=== PATIENT | female | born 2000 | race African-American/Black ===

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

== ENCOUNTER 2021-08-14 19:49 | Emergency (ER) | payer BC, SELFPAY ==
[2021-08-14 19:56] VITALS: BP 125/80; PULSE 113; RESP 18; TEMP 37.6; O2SAT 100
--- NOTE | 2021-08-14 19:59 | ED.ABDPAIN ---
HPI - Abdominal Pain General Chief Complaint: Abdominal Pain Stated Complaint: abd pain Time Seen by Provider: 08/14/21 19:59 Source: patient Mode of arrival: ambulatory Limitations: no limitations History of Present Illness HPI narrative: 21-year-old female with no significant medical history presents with complaint of left lower quadrant for 2 to 3 days. States that pain has been constant, nothing makes pain better or worse. No worsening of pain but became concerned due to consistency of pain. She reports nausea but no vomiting. She denies constipation, diarrhea, urinary symptoms. Last menstrual period was July 22. She is eating and drinking normally. Took Tylenol yesterday to treat pain. She does not appear in any distress and is laughing during conversation. All systems reviewed and negative except as noted above. Related Data Home Medications Medication Instructions Recorded Confirmed No Home Medications 03/18/20 03/29/20 Allergies Allergy/AdvReac Type Severity Reaction Status Date / Time No Known Allergies Allergy Mild Verified 08/14/21 19:50 Review of Systems Review of Systems: CONSTITUTIONAL: Denies fever, chills, or sweats. EYES: Denies visual changes, redness, or discharge. ENT: Denies rhinorrhea, congestion, sore throat, or otalgia. CARDIOVASCULAR: Denies chest pain, palpitations, or edema. RESPIRATORY: Denies cough or dyspnea. GASTROINTESTINAL: Reports abdominal pain, nausea. Denies vomiting, or diarrhea. GENITOURINARY: Denies dysuria or hematuria. SKIN: Denies rash or itching. MUSCULOSKELETAL: Denies back pain, joint pain, or myalgia. NEUROLOGIC: Denies headache, numbness, or weakness. PSYCHIATRIC: Denies anxiety or depression. All other systems reviewed are negative, except as documented in HPI. [facility] Past Medical History Medical History No pertinent past medical history Surgical History Surgical History No pertinent past surgical history Family History Family History Mother No pertinent family history Social History Social History Smoking status: Never smoker Alcohol intake: never Substance use: never Gender identity (if verbalized by the patient): Female Comments At time of signature, agree with nursing past medical, surgical, social and family history. There is no relevant family history pertinent to the presenting complaint. Exam Narrative: GENERAL: This is a well-nourished, well-developed patient, in no apparent distress. HEAD: normocephalic, atraumatic. EYES: PERRL. Sclera clear/white. Vision is grossly intact. EARS: External ears normal NOSE: External nose normal NECK: Neck supple, non-tender without lymphadenopathy, masses or thyromegaly. CARDIOVASCULAR: Regular rate and rhythm without murmurs, gallops, or rubs. RESPIRATORY: Clear to auscultation. Breath sounds equal bilaterally. No wheezes, rales, or rhonchi. GASTROINTESTINAL: Abdomen soft, nondistended. Bowel sounds are active. Patient to left upper quadrant, left lower quadrant and suprapubic region. SKIN: warm, Dry, intact with no suspicious lesions or rash, good texture and turgor. NEURO: awake, alert, and oriented to person, place and time. There were no obvious focal neurologic abnormalities. EXTREMITIES: Normal range of motion extremities. Course Course Level of Care: Express Care Visit Vital Signs Vital signs: Vital Signs Temperature 37.6 C 08/14/21 19:56 Pulse Rate 113 H 08/14/21 19:56 Respiratory Rate 18 08/14/21 19:56 Blood Pressure 125/80 08/14/21 19:56 Pulse Oximetry 100 08/14/21 19:56 Temperature 37.6 C 08/14/21 19:56 Pulse Rate 113 H 08/14/21 19:56 Respiratory Rate 18 08/14/21 19:56 Blood Pressure 125/80
== END 2021-08-14 20:19 | disposition short-term general hospital (02) ==
PROVIDERS: Emergency Provider Nurse Practitioner Family
DX: R10.32 Left lower quadrant pain (principal)
CPT/HCPCS: 81003; 81025; 99212; G0463

== ENCOUNTER 2021-08-14 20:36 | Emergency (ER) | payer BC, SELFPAY ==
--- NOTE | ~2021-08-14 | US_ITS ---
. EXAMINATION: US OB <=14 wk fetus w TV DATE: 08/14/2021 22:53 INDICATION: Left lower quadrant abdominal pain. . TECHNIQUE: Real-time transabdominal and transvaginal pelvic ultrasound was performed. COMPARISON: None. FINDINGS: TRANSABDOMINAL ULTRASOUND: The uterus measures 8.2 x 5.4 x 4.3 cm. TRANSVAGINAL ULTRASOUND: There is no visible intrauterine gestational sac. The endometrial complex me asures 10 mm in thickness. The right ovary measures 2.0 x 1.2 x 1.7 cm. The left ovary measures 2.1 x 2.1 x 2.0 cm. There is physiologic free fluid in the pelvis. IMPRESSION: 1. No visible intrauterine gestational sac, which may be normal in early . Ectopic pregnanc y and spontaneous are not excluded. Serial beta-hCGs are recommended. Reviewed, dictated and finalized at location A. IMPRESSION: 1. No visible intrauterine gestational sac, which may be normal in early pregn piyush. Ectopic and spontaneous are not excluded. Serial beta- hCGs are recommended.
[2021-08-14 21:02] VITALS: BP 135/106; PULSE 104; RESP 16; TEMP 36.9; O2SAT 100
[2021-08-14 21:22] LABS: Basophils Percent Auto 0.3 % (0.2-1.2); Eosinophils Percent Auto 0.4 % (0-4.4); Hematocrit 39.2 % (37.0-47.0); Hemoglobin 11.8 g/dL (12.0-15.0); Immature Granulocyte Absolute 0.03 K/mm3 (0.00-0.031); Immature Granulocyte Percent A 0.3 % (0-0.5); Lymphocytes Absolute Auto 1.77 K/mm3 (0.9-3.2); Lymphocytes Percent Auto 16.4 % (18.3-44.2); Mean Corpuscular HGB Conc 30.1 g/dl (32-36); Mean Corpuscular Hemoglobin 24.7 pg (26-34); Mean Corpuscular Volume 82.2 fl (80-100); Mean Platelet Volume 9.5 fl (7.4-10.4); Monocytes Absolute Auto 0.5 K/mm3 (0.1-0.6); Monocytes Percent Auto 4.6 % (2.6-8.5); Neutrophils Absolute Auto 8.5 K/mm3 (1.3-6.7); Platelet Count Result 382 k/mm3 (150-375); Red Blood Count 4.77 M/mm3 (4.2-5.4); Red Cell Distribution Width 14.9 % (11.5-14.5); White Blood Count 10.8 K/mm3 (4.5-10.0)
[2021-08-14 21:32] LABS: Alanine Aminotransferase 11 U/L (4-35); Albumin Level 4.3 g/dL (3.5-5.1); Alkaline Phosphatase 84 U/L (38-126); Anion Gap 7 mmol/L (8-16); Aspartate Amino Transferase 21 U/L (14-36); Bilirubin,Total 0.2 mg/dL (0.2-1.3); Blood Urea Nitrogen 11 mg/dL (7-17); Calcium 9.1 mg/dL (8.4-10.2); Carbon Dioxide 25 mmol/L (22-30); Chloride 105 mmol/L (98-107); Estimated CRCL calculation 99 ml/min; Estimated Glomerular Filt Rate > 60; Glucose 101 mg/dL (65-110); Lipase 107 U/L (23-300); Potassium 3.8 mmol/L (3.4-5.0); Sodium 137 mmol/L (137-145)
--- NOTE | 2021-08-14 21:40 | ED.ABDPAIN ---
HPI - Abdominal Pain General Chief Complaint: Abdominal Pain Stated Complaint: abdominal pain Time Seen by Provider: 08/14/21 21:16 Source: patient Mode of arrival: ambulatory Limitations: no limitations History of Present Illness HPI narrative: Patient is a 21-year-old previously healthy female who presents the ED with report of left upper quadrant abdominal pain. Patient reports having pain for the past 3 days. She describes the pain as an aching. She has taken Tylenol for this at home yesterday without much relief. She did not try anything for the pain today. She also reports having mild nausea. She denies any other symptoms, including fever, chills, vomiting, chest pain, shortness of breath, pain with inspiration, urinary symptoms, constipation, diarrhea. Related Data Home Medications Medication Instructions Recorded Confirmed No Home Medications 03/18/20 08/14/21 Allergies Allergy/AdvReac Type Severity Reaction Status Date / Time No Known Allergies Allergy Mild Verified 08/14/21 19:50 Review of Systems Review of Systems: CONSTITUTIONAL: Denies fever, chills, or sweats. CARDIOVASCULAR: Denies chest pain. RESPIRATORY: Denies dyspnea. GASTROINTESTINAL: Reports nausea, LUQ abdominal pain. Denies constipation, vomiting, or diarrhea. GENITOURINARY: Denies dysuria or hematuria. SKIN: Denies rash or itching. MUSCULOSKELETAL: Denies back pain. NEUROLOGIC: Denies headache, numbness, or weakness. All systems reviewed & are unremarkable except as noted in HPI and below PMFSH Past Medical History Medical History No pertinent past medical history Surgical History Surgical History No pertinent past surgical history Family History Family History Mother No pertinent family history Social History Social History Smoking status: Never smoker Alcohol intake: never Substance use: never Gender identity (if verbalized by the patient): Female Exam Narrative: GENERAL: Well appearing, well-nourished, non-toxic, in no acute distress. HEAD: Normocephalic, atraumatic. NECK: Supple. No adenopathy, no masses. RESPIRATORY: Airway patent, respirations nonlabored. Clear to auscultation bilaterally, no rales, rhonchi, wheezing. CARDIOVASCULAR: Regular rate and rhythm without murmurs, rubs, or gallops. Peripheral pulses 2+ and equal bilaterally. ABDOMINAL: Soft, minimal tenderness to LUQ/LLQ, nondistended, no hepatosplenomegaly. Normoactive BS. MUSCULOSKELETAL: Moves all extremities. Strength/ROM intact without gross deformities or TTP. No edema. No calf tenderness. SKIN: Warm, dry, normal color. No rashes. NEURO: A&O X3. Speech clear. Cranial nerves II-XII grossly intact. Steady gait. No ataxic movements. PSYCHIATRIC: Somewhat flat affect. Appropriate mood. Normal interaction. Course Vital Signs Vital signs: Vital Signs Temperature 98.5 F 08/14/21 21:02 Pulse Rate 104 H 08/14/21 21:02 Respiratory Rate 16 08/14/21 21:02 Blood Pressure 135/106 H 08/14/21 21:02 Pulse Oximetry 100 08/14/21 21:02 Temperature 98.5 F 08/14/21 21:02 Pulse Rate 80 08/14/21 22:57 Respiratory Rate 16 08/14/21 22:57 Blood Pressure 121/96 H 08/14/21 22:57 Pulse Oximetry 100 08/14/21 22:57 MDM - Abdominal Pain MDM Narrative Medical decision making narrative: Patient presented to ED with 3-day history of left upper quadrant abdominal pain. She does have minimal left upper and lower quadrant abdominal pain on exam today. Patient's bedside urine test was positive. Patient has never been before. Quantitative beta hCG ordered and showing 14. Patient's last menstrual cycle was July 22 through July 26 and she reports it was normal. She was last sexually active on Thursday.
[2021-08-14 21:41] VITALS: BP 142/83; PULSE 84; RESP 18
[2021-08-14 21:53] LABS: Appearance Urine Clear (Clear); Bilirubin Urine Negative (Negative); Blood Urine Negative (Negative); Color Urine Yellow (Yellow); Glucose Urine UA Negative (Negative); Ketones Urine Trace mg/dL (Negative); Leukocyte Esterase Ur 1+ LEU/UL (Negative); Nitrate Urine Negative (Negative); Protein Urine Trace mg/dL (Negative); Specific Grav Ur >= 1.030 (1.001-1.035)
[2021-08-14 22:01] LABS: Add Urine Microscopic? YES; Mucus Urine Moderate /lpf; Squamous Epithelial Cell Urine Many /hpf (Few); WBC Urine 31-50 /hpf
[2021-08-14 22:20] LABS: Beta HCG Quantitative 14.01 mIU/ML
[2021-08-14 22:57] VITALS: BP 121/96; PULSE 80; RESP 16; O2SAT 100
[2021-08-14] MEDS: NITROFURANTOIN MONOHYD MACROCR 100 MG CAP PO (23:32)
== END 2021-08-14 23:37 | disposition home or self-care (01) ==
PROVIDERS: Family Medicine; Physician Assistant; Emergency Provider Emergency Medicine
DX: R82.71 Bacteriuria (principal); O23.41 Unspecified infection of urinary tract in pregnancy, first trimester; Z3A.00 Weeks of gestation of pregnancy not specified
CPT/HCPCS: 36415; 76801; 76817; 80053; 81001; 81025; 83690; 84702; 85025; 87086; 99284; A9270

== ENCOUNTER 2021-10-31 19:54 | Emergency (ER) | payer BC, MEDICAID, SELFPAY ==
--- NOTE | 2021-10-31 20:03 | ED.SKABFB ---
HPI - Skin/Abscess/Foreign Bdy General Chief complaint: Skin/Abscess/Foreign Body Stated complaint: Insect Bites Time Seen by Provider: 10/31/21 20:03 Source: patient Mode of arrival: ambulatory Limitations: no limitations History of Present Illness HPI narrative: 21 yo F presents with c/o itching to neck, face, arms and legs. Reports symptoms for 2 to 3 days. States that she is getting bit by ants at work and was told to come here for documentation. She has not used any OTC meds to treat symptoms. She states one other coworker also has bites and that is her sister. Her and sister do not live today. All systems reviewed and negative except as noted above. Related Data Home Medications Medication Instructions Recorded Confirmed norgestimate 0.25 mg-ethinyl 1 tablet PO DAILY 10/31/21 10/31/21 estradiol 35 mcg tablet (Estarylla) Allergies Allergy/AdvReac Type Severity Reaction Status Date / Time No Known Allergies Allergy Mild Verified 10/31/21 19:57 Review of Systems Review of Systems: CONSTITUTIONAL: Denies fever, chills, or sweats. EYES: Denies visual changes, redness, or discharge. ENT: Denies rhinorrhea, congestion, sore throat, or otalgia. CARDIOVASCULAR: Denies chest pain, palpitations, or edema. RESPIRATORY: Denies cough or dyspnea. GASTROINTESTINAL: Denies abdominal pain, nausea, vomiting, or diarrhea. GENITOURINARY: Denies dysuria or hematuria. SKIN: Denies rash. Reports itchy ant bites to face, neck, arms and legs. MUSCULOSKELETAL: Denies back pain, joint pain, or myalgia. NEUROLOGIC: Denies headache, numbness, or weakness. PSYCHIATRIC: Denies anxiety or depression. All other systems reviewed are negative, except as documented in HPI. COUNTS INCLUDE 234 BEDS AT THE [facility] Past Medical History Medical History No pertinent past medical history Surgical History Surgical History No pertinent past surgical history Family History Family History Mother No pertinent family history Social History Social History Smoking status: Never smoker Alcohol intake: never Substance use: never Gender identity (if verbalized by the patient): Female Comments At time of signature, agree with nursing past medical, surgical, social and family history. There is no relevant family history pertinent to the presenting complaint. Exam Narrative: GENERAL: This is a well-nourished, well-developed patient, in no apparent distress. HEAD: normocephalic, atraumatic. EYES: PERRL. Sclera clear/white. Vision is grossly intact. EARS: External ears normal NOSE: External nose normal NECK: Neck supple, non-tender without lymphadenopathy, masses or thyromegaly. CARDIOVASCULAR: Regular rate and rhythm without murmurs, gallops, or rubs. RESPIRATORY: Clear to auscultation. Breath sounds equal bilaterally. No wheezes, rales, or rhonchi. SKIN: warm, Dry, intact with no rash, good texture and turgor. Two small erythematous papules to L side of neck. No swelling, drainage. Skin otherwise normal. NEURO: awake, alert, and oriented to person, place and time. There were no obvious focal neurologic abnormalities. EXTREMITIES: No joint tenderness, effusion, or edema noted. Course Course Level of Care: Express Care Visit Vital Signs Vital signs: Vital Signs Temperature 36.8 C 10/31/21 20:06 Pulse Rate 104 H 10/31/21 20:06 Respiratory Rate 18 10/31/21 20:06 Blood Pressure 145/89 H 10/31/21 20:06 Pulse Oximetry 100 10/31/21 20:06 Oxygen Delivery Room Air 10/31/21 20:06 Temperature 36.8 C 10/31/21 20:06 Pulse Rate 104 H 10/31/21 20:06 Respiratory Rate 18 10/31/21 20:06 Blood Pressure 145/89 H 10/31/21 20:06 Pulse Oximetry 100 10/31/21 20:06 Oxygen Delivery Room Air 10/31/21 20:06 reviewed
[2021-10-31 20:06] VITALS: BP 145/89; PULSE 104; RESP 18; TEMP 36.8; O2SAT 100
== END 2021-10-31 20:09 | disposition home or self-care (01) ==
PROVIDERS: Emergency Provider Nurse Practitioner Family
DX: S10.96XA Insect bite of unspecified part of neck, initial encounter (principal); W57.XXXA Bitten or stung by nonvenomous insect and other nonvenomous arthropods, initial encounter
CPT/HCPCS: 99213; G0463

== ENCOUNTER 2021-11-22 12:43 | Emergency (ER) | payer BC, MEDICAID, SELFPAY ==
[2021-11-22 12:52] VITALS: BP 109/67; PULSE 72; RESP 20; TEMP 37.3; O2SAT 100
--- NOTE | 2021-11-22 13:29 | ED.ABDPAIN ---
HPI - Abdominal Pain General Chief Complaint: Abdominal Pain Stated Complaint: abd pain Time Seen by Provider: 11/22/21 13:29 History of Present Illness HPI narrative: Hieu Ospina is a 21 yo female who states that she developed abdominal pain on the left side 3 days ago after eating something bad . Denies any nausea vomiting or diarrhea over the last 3 days she was off for the first to those days but was to be at work today; she left work because she said her stomach was hurting and her boss told her she had to come to [facility] and get a note stating that she was seen here. She denies any tenderness on exam she denies any fever she denies any type of urinary symptoms Related Data Home Medications Medication Instructions Recorded Confirmed norgestimate 0.25 mg-ethinyl 1 tablet PO DAILY 10/31/21 11/22/21 estradiol 35 mcg tablet (Estarylla) Allergies Allergy/AdvReac Type Severity Reaction Status Date / Time No Known Allergies Allergy Mild Verified 11/22/21 12:57 Review of Systems Review of Systems: CONSTITUTIONAL: Denies fever, chills, sweats. EYES: Denies visual changes, redness, discharge. ENT: Denies rhinorrhea, congestion, sore throat, otalgia. CARDIOVASCULAR: Denies chest pain, palpitations, edema. RESPIRATORY: Denies dyspnea, wheezing, cough GASTROINTESTINAL: Denies abdominal pain, nausea, vomiting, diarrhea. GENITOURINARY: Denies dysuria, hematuria, abnormal discharge SKIN: Denies rash or itching. NEUROLOGIC: Denies numbness, or focal weakness. PSYCHIATRIC: Denies anxiety or depression. Had left-sided abdominal pain for 3 days after eating which she stated 'was something bad', with no correlating symptoms PMFSH Past Medical History Medical History No pertinent past medical history Surgical History Surgical History No pertinent past surgical history Family History Family History Mother No pertinent family history Social History Social History Smoking status: Never smoker Alcohol intake: never Substance use: never Gender identity (if verbalized by the patient): Female Comments At time of signature, I agree with nursing past medical, surgical, social and family history. There is no relevant family history pertinent to the presenting complaint. Exam Narrative: GENERAL: This is a well-nourished, well-developed patient, in no obvious distress. HEAD: normocephalic, atraumatic. EYES: . Sclera clear/white. Vision is grossly intact. EARS: External ears normal, . Hearing grossly intact. NOSE: External nose normal without nasal discharge, nares without redness, no rhinorrhea. THROAT: Mucous membranes moist, NECK: Neck supple, non-tender CARDIOVASCULAR: Regular rate and rhythm without murmurs, gallops, or rubs. RESPIRATORY: Clear to auscultation. Breath sounds equal bilaterally. No wheezes, rales, or rhonchi. GASTROINTESTINAL: Abdomen soft, non-tender, bowel sounds normal with no abdominal tenderness in any quadrant although states she has problems with her left upper quadrant SKIN: warm, intact with no suspicious lesions or rash, good texture and turgor. NEURO: awake, alert, and oriented to person, place and time. There were no obvious focal neurologic abnormalities. Steady gait EXTREMITIES: Normal range of motion. BACK: Nontender without deformity Course Course Emergency Course: Patient here for left upper abdominal pain for the 3 days it has not been worsening no nausea vomiting or diarrhea test is negative, urine test is 3+ leukocytes but patient denies any kind of symptoms and so treatment is deferred Discussed with patient if increased pain, fever, nausea vomiting diarrhea should go to the ER or follow-up with primary care physician Level of Care: Expres
== END 2021-11-22 13:54 | disposition home or self-care (01) ==
PROVIDERS: Emergency Provider Nurse Practitioner; PCP Family Medicine
DX: R10.12 Left upper quadrant pain (principal)
CPT/HCPCS: 81003; 81025; 99212; G0463

== ENCOUNTER 2022-03-22 09:59 | Emergency (ER) | payer BC, SELFPAY ==
--- NOTE | ~2022-03-22 | XR_ITS ---
XR chest 1V portable DATE: 03/22/2022 11:02 INDICATION: Cough for 2 weeks. Flulike symptoms. TECHNIQUE: Portable upright AP chest on 03/22/2022 at 1100 hours COMPARISON: 07/27/2018 2 view chest FINDINGS: Normal heart size. No hilar or mediastinal enlargement. No pulmonary infiltrate or consolid ation, pleural effusion or pulmonary vascular congestion or pneumothorax. Mild thoracic moderate dextroscoliosis. IMPRESSION: No active cardiac pulmonary disease Reviewed, dictated and finalized at location A.
[2022-03-22 10:12] VITALS: BP 122/73; PULSE 110; RESP 18; TEMP 36.3; O2SAT 98
--- NOTE | 2022-03-22 10:14 | ED.URI ---
HPI - URI/Sore Throat General Chief Complaint: Upper Respiratory Infection <RICARDO Gandhi Last Filed: 03/22/22 14:11> Stated Complaint: FEVER,BODY ACHES <RICARDO Gandhi Last Filed: 03/22/22 14:11> Time Seen by Provider: 03/22/22 10:12 <RICARDO Gandhi Last Filed: 03/22/22 14:11> Source: patient <RICARDO Gandhi Last Filed: 03/22/22 14:11> Mode of arrival: ambulatory <RICARDO Gandhi Last Filed: 03/22/22 14:11> Limitations: no limitations <RICARDO Gandhi Last Filed: 03/22/22 14:11> History of Present Illness HPI Narrative: Patient is a 21 y/o female who presents to the ED with c/o upper respiratory symptoms. Patient reports having a persistent dry cough for the last two weeks. Over the last 4 days, she has also had subjective fevers, chills, body aches, congestion, rhinorrhea, sore throat, nausea. Denies vomiting, abdominal pain, CP, SOB. Patient here with young son who has had similar symptoms. Patient is vaccinated for COVID. She has not received her flu shot this year. <RICARDO Gandhi Last Filed: 03/22/22 14:11> Related Data Home Medications: Home Medications Medication Instructions Recorded Confirmed norgestimate 0.25 mg-ethinyl 1 tablet PO DAILY 10/31/21 11/22/21 estradiol 35 mcg tablet (Estarylla) <RICARDO Gandhi Last Filed: 03/22/22 14:11> Allergies/Adverse Reactions: Allergies Allergy/AdvReac Type Severity Reaction Status Date / Time No Known Allergies Allergy Mild Verified 03/22/22 10:15 <RICARDO Gandhi Last Filed: 03/22/22 14:11> Review of Systems Review of Systems: CONSTITUTIONAL: Reports subjective fevers. ENT: Reports rhinorrhea, congestion, sore throat. CARDIOVASCULAR: Denies chest pain. RESPIRATORY: Reports cough. Denies dyspnea. GASTROINTESTINAL: Reports nausea. Denies abdominal pain, vomiting. MUSCULOSKELETAL: Reports diffuse myalgias. <Elaine Moss PA-C - Last Filed: 03/22/22 14:11> All systems reviewed & are unremarkable except as noted in HPI and below <Elaine Moss PA-C - Last Filed: 03/22/22 14:11> PMFSH Past Medical History Medical History: Medical History No pertinent past medical history <Elaine Moss PA-C - Last Filed: 03/22/22 14:11> Surgical History Surgical History: Surgical History No pertinent past surgical history <Elaine Moss PA-C - Last Filed: 03/22/22 14:11> Family History Family History: Family History Mother No pertinent family history <Elaine Moss PA-C - Last Filed: 03/22/22 14:11> Social History Social History: Social History Smoking status: Never smoker Alcohol intake: never Substance use: never Gender identity (if verbalized by the patient): Female <Elaine Moss PA-C - Last Filed: 03/22/22 14:11> Exam Narrative: GENERAL: Well appearing, well-nourished, non-toxic, in no acute distress. HEAD: Normocephalic, atraumatic. EYES: PERRL/EOMI, conjunctivae clear bilaterally. NOSE: Normal, no drainage. THROAT: Pharynx clear, minimal posterior pharynx erythema, no tonsillar hypertrophy or exudate. Uvula midline. MMs moist. NECK: Supple. No adenopathy, no masses. RESPIRATORY: Airway patent, respirations nonlabored. Clear to auscultation bilaterally, no rales, rhonchi, wheezing. CARDIOVASCULAR: Regular rate and rhythm without murmurs, rubs, or gallops. Radial pulses 2+ and equal bilaterally. ABDOMINAL: Soft, nontender, nondistended, no hepatosplenomegaly. Normoactive BS. MUSCULOSKELETAL: Moves all extremities. Strength/ROM intact without gross deformities. SKIN: Warm, dry, nor
[2022-03-22] MEDS: SODIUM CHLORIDE 0.9% IV 1,000 ML 999 ML IV CONT (10:34)
[2022-03-22 11:08] LABS: Influenza A QL RT-PCR Positive (Negative); Influenza B QL RT-PCR Negative (Negative); SARS-CoV-2 RNA PCR Negative
== END 2022-03-22 12:32 | disposition home or self-care (01) ==
PROVIDERS: Physician Assistant; Emergency Provider Emergency Medicine; PCP Family Medicine
DX: J10.1 Influenza due to other identified influenza virus with other respiratory manifestations (principal); Z20.822 Contact with and (suspected) exposure to COVID-19
CPT/HCPCS: 71045; 87636; 96361; 96374; 99284; J0131; J7030

== ENCOUNTER 2022-05-03 18:50 | Emergency (ER) | payer BC, MEDICAID, SELFPAY ==
[2022-05-03 19:06] VITALS: BP 104/57; PULSE 86; RESP 16; TEMP 36.7; O2SAT 100
[2022-05-03 19:30] LABS: Add Urine Microscopic? YES; Appearance Urine Slightly Cloudy (Clear); Basophils Percent Auto 0.2 % (0.2-1.2); Bilirubin Urine Negative (Negative); Blood Urine Negative (Negative); Color Urine Light Yellow (Yellow); Eosinophils Absolute Auto 0.2 K/mm3 (0-0.3); Eosinophils Percent Auto 2.1 % (0-4.4); Glucose Urine UA Negative (Negative); Hematocrit 37.7 % (37.0-47.0); Hemoglobin 11.6 g/dL (12.0-15.0); Immature Granulocyte Absolute 0.01 K/mm3 (0.00-0.031); Immature Granulocyte Percent A 0.1 % (0-0.5); Ketones Urine Trace mg/dL (Negative); Leukocyte Esterase Ur 2+ LEU/UL (Negative); Lymphocytes Absolute Auto 4.02 K/mm3 (0.9-3.2); Lymphocytes Percent Auto 48.5 % (18.3-44.2); Mean Corpuscular HGB Conc 30.8 g/dl (32-36); Mean Corpuscular Hemoglobin 24.8 pg (26-34); Mean Corpuscular Volume 80.7 fl (80-100); Mean Platelet Volume 9.2 fl (7.4-10.4); Monocytes Absolute Auto 0.7 K/mm3 (0.1-0.6); Monocytes Percent Auto 8.7 % (2.6-8.5); Neutrophils Absolute Auto 3.4 K/mm3 (1.3-6.7); Neutrophils Percent Auto 40.4 % (45.5-73.1); Nitrate Urine Negative (Negative); Platelet Count Result 292 k/mm3 (150-375); Protein Urine Trace mg/dL (Negative); Red Blood Count 4.67 M/mm3 (4.2-5.4); Red Cell Distribution Width 15.9 % (11.5-14.5); White Blood Count 8.3 K/mm3 (4.5-10.0)
[2022-05-03 19:39] LABS: Alanine Aminotransferase 19 U/L (6-35); Albumin Level 4.2 g/dL (3.5-5.1); Alkaline Phosphatase 56 U/L (38-126); Anion Gap 4 mmol/L (8-16); Aspartate Amino Transferase 25 U/L (14-36); Bilirubin,Total 0.3 mg/dL (0.2-1.3); Blood Urea Nitrogen 8 mg/dL (7-17); Calcium 8.9 mg/dL (8.4-10.2); Carbon Dioxide 27 mmol/L (22-30); Chloride 102 mmol/L (98-107); Estimated CRCL calculation 99 ml/min; Estimated Glomerular Filt Rate > 60; Glucose 83 mg/dL (65-110); Lipase 138 U/L (23-300); Potassium 3.7 mmol/L (3.4-5.0); Sodium 133 mmol/L (137-145)
[2022-05-03 19:50] LABS: Bacteria Urine Trace /hpf; Mucus Urine Rare /lpf; Squamous Epithelial Cell Urine Many /hpf (Few); WBC Urine >75 /hpf
--- NOTE | 2022-05-03 20:43 | ED.ABDPAIN ---
HPI - Abdominal Pain General Chief Complaint: Abdominal Pain Stated Complaint: abd pain Time Seen by Provider: 05/03/22 20:23 Source: patient Mode of arrival: ambulatory Limitations: no limitations History of Present Illness HPI narrative: Patient is a 21 y/o female who presents to the ED with c/o lower abdominal pain. Patient reports she is approximately 6 weeks gestation. 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 She was last seen for her first appointment on Thursday at which point she had an ultrasound which confirmed an IUP. Patient reports she developed slight pain in her lower abdomen yesterday, which persisted into today. She has not tried anything for the pain. She has had some nausea, but denies vomiting. Denies fever, diarrhea, constipation, vaginal bleeding, rectal bleeding, dysuria, hematuria. Related Data Home Medications Medication Instructions Recorded Confirmed norgestimate 0.25 mg-ethinyl 1 tablet PO DAILY 10/31/21 11/22/21 estradiol 35 mcg tablet (Estarylla) Allergies Allergy/AdvReac Type Severity Reaction Status Date / Time No Known Allergies Allergy Mild Verified 05/03/22 18:50 Review of Systems Review of Systems: CONSTITUTIONAL: Denies fever, chills, or sweats. CARDIOVASCULAR: Denies chest pain. RESPIRATORY: Denies cough or dyspnea. GASTROINTESTINAL: Reports lower abdominal pain, nausea. Denies constipation, rectal bleeding, vomiting, or diarrhea. GENITOURINARY: Denies vaginal bleeding, dysuria or hematuria. All systems reviewed & are unremarkable except as noted in HPI and below PMFSH Past Medical History Medical History No pertinent past medical history Surgical History Surgical History No pertinent past surgical history Family History Family History Mother No pertinent family history Social History Social History Smoking status: Never smoker Alcohol intake: never Substance use: never Gender identity (if verbalized by the patient): Female Exam Narrative: GENERAL: Well appearing, well-nourished, non-toxic, in no acute distress. HEAD: Normocephalic, atraumatic. NECK: Supple. No adenopathy, no masses. RESPIRATORY: Airway patent, respirations nonlabored. Clear to auscultation bilaterally, no rales, rhonchi, wheezing. CARDIOVASCULAR: Regular rate and rhythm without murmurs, rubs, or gallops. Peripheral pulses 2+ and equal bilaterally. ABDOMINAL: Soft, mild tenderness throughout lower abdomen, nondistended, no hepatosplenomegaly. Normoactive BS. MUSCULOSKELETAL: Moves all extremities. Strength/ROM intact without gross deformities. SKIN: Warm, dry, normal color. No rashes. NEURO: A&O X3. Speech clear. Cranial nerves II-XII grossly intact. Steady gait. No ataxic movements. PSYCHIATRIC: Appropriate mood and affect. Normal interaction. Course Consultations Consultation #1: Discussed case with Dr. Eisenberg OBGYN operations tech @ [facility], advised to treat UTI, allow patient to take ibuprofen 600 mg twice daily, and call office to make follow-up appointment. Date: 05/03/22 Vital Signs Vital signs: Vital Signs Temperature 98.1 F 05/03/22 19:06 Pulse Rate 86 05/03/22 19:06 Respiratory Rate 16 05/03/22 19:06 Blood Pressure 104/57 L 05/03/22 19:06 Pulse Oximetry 100 05/03/22 19:06 Oxygen Delivery Room Air 05/03/22 19:06 Temperature 98.1 F 05/03/22 19:06 Pulse Rate 74 05/03/22 23:53 Respiratory Rate 18 05/03/22 23:53 Blood Pressure 90/74 L 05/03/22 23:53 Pulse Oximetry 100 05/03/22 23:53 Oxygen Delivery Room Air 05/03/22 19:06 MDM - Abdominal Pain MDM Narrative Medical decision making narrative: Patient presented to ED with report of lower abdominal pain, approximately 6 to 7
[2022-05-03] MEDS: SODIUM CHLORIDE 0.9% IV 1,000 ML 999 ML IV CONT (21:16)
--- NOTE | 2022-05-03 23:29 | PC.NURSE ---
Talked to Melanie in lab at 23:29 to add on Beta HCG Quant
[2022-05-03] MEDS: IBUPROFEN 600 MG TABLET PO (23:33)
[2022-05-03 23:53] VITALS: BP 90/74; PULSE 74; RESP 18; O2SAT 100
== END 2022-05-04 00:02 | disposition home or self-care (01) ==
PROVIDERS: Emergency Medicine; Emergency Provider Physician Assistant; PCP Family Medicine
DX: O26.891 Other specified pregnancy related conditions, first trimester (principal); R10.30 Lower abdominal pain, unspecified; O23.41 Unspecified infection of urinary tract in pregnancy, first trimester; Z3A.01 Less than 8 weeks gestation of pregnancy
CPT/HCPCS: 36415; 80053; 81001; 81025; 83690; 84702; 85025; 87077; 87086; 87186; 96361; 96365; 96368; 99284; A9270; J0131; J0696; J7030

== ENCOUNTER 2023-05-25 16:35 | Emergency (ER) | payer OTHER, SELFPAY ==
--- NOTE | ~2023-05-25 | XR_ITS ---
EXAMINATION: XR knee LT min 4V DATE: 05/25/2023 17:32 INDICATION: Diffuse left knee pain TECHNIQUE: Anteroposterior, 2 oblique and crosstable lateral views of the left knee were obtained COMPARISON: None. FINDINGS: Alignment is normal. No fracture. No joint effusion/layering lipohemarthrosis. Mild prepatellar subc utaneous edema. IMPRESSION: 1. No left knee joint effusion or osseous abnormality. Reviewed, dictated and finalized at location A. [facility] [employer]
--- NOTE | ~2023-05-25 | XR_ITS ---
EXAMINATION: XR foot RT min 3V DATE: 05/25/2023 17:33 INDICATION: Traumatic right foot pain at the left second and third metatarsophalangeal joints TECHNIQUE: Dorsoplantar, two oblique and lateral views of the right foot were obtained. COMPARISON: None. FINDINGS: Alignment is normal. No fracture. Joint spaces are normal. Soft tissues are unremarkable. IMPRESSION: 1. Negative right foot radiographs. Reviewed, dictated and finalized at location A. [employer] MOTOR AND GENERATOR REPAIRER
[2023-05-25 16:49] VITALS: BP 122/86; PULSE 92; RESP 16; TEMP 36.9; O2SAT 99
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
--- NOTE | 2023-05-25 17:17 | PC.NURSE ---
PT HAS REDNESS TO THE UPPER AND LOWER LEFT SIDE OF THE LIP, 2 SUPERFICIAL CUTS TO THE RIGHT UPPER ARM ONE IS 4 CM LONG ONE IS 6 CM LONG, BRUISING WITH SWELLING TO THE LEFT UPPER ARM 16 CM BY 13 CM. RED TIM ACROSS THE MID BACK THAT IS 13 CM LONG, BRUISING TO THE LEFT BACK 12 CM BY 4 CM, SWELLING NO BRUISING TO THE LEFT ANTERIOR KNEE, BRUISING TO THE DORSAL LEFT FOOT AT BASE OF THE 3RD TOE 2 CM BY 2 CM, RED TIM TO THE LEFT BREAST 2 CM BY 2 CM. ANITA BOWEN RN
== END 2023-05-25 18:23 | disposition home or self-care (01) ==
PROVIDERS: Emergency Provider Nurse Practitioner Family
DX: S90.121A Contusion of right lesser toe(s) without damage to nail, initial encounter (principal); S40.022A Contusion of left upper arm, initial encounter; S80.02XA Contusion of left knee, initial encounter; S16.1XXA Strain of muscle, fascia and tendon at neck level, initial encounter; Y04.8XXA Assault by other bodily force, initial encounter
CPT/HCPCS: 73564; 73630; 99214; G0463

== ENCOUNTER 2023-06-19 13:45 | Emergency (ER) | payer OTHER, SELFPAY ==
[2023-06-19 14:27] VITALS: BP 109/81; PULSE 87; RESP 17; TEMP 36.4; O2SAT 100
--- NOTE | 2023-06-19 17:28 | PC.NURSE ---
pt did not answer when called to go to a room, no answer w/ mult attempts, pt did not notify emergency room orderly she was leaving and her exit was not witnessed
== END 2023-06-19 17:28 | disposition left against medical advice (07) ==
DX: R21 Rash and other nonspecific skin eruption (principal)
CPT/HCPCS: 99199

== ENCOUNTER 2024-02-15 17:55 | Emergency (ER) | payer OTHER, SELFPAY ==
--- NOTE | 2024-02-15 17:59 | ED.URI ---
HPI - URI/Sore Throat General Chief Complaint: Upper Respiratory Infection Stated Complaint: cough,bodyaches,throat hurts,eyes hurt Time Seen by Provider: 02/15/24 18:38 Source: patient and RN notes reviewed Mode of arrival: ambulatory Limitations: no limitations History of Present Illness HPI Narrative: 23-year-old female presents with concern for one-week history of sinus congestion, drainage, pressure, cough, headache, body aches. Reports her eyes started becoming red and burning with drainage today. She reports she took [id number] medications without relief MD elicited complaint: cough, sore throat and nasal congestion Related Data Allergies Allergy/AdvReac Type Severity Reaction Status Date / Time codeine Allergy Dyspnea / Verified 02/15/24 18:25 SOB Review of Systems Review of Systems: CONSTITUTIONAL: Reports malaise, fever. EYES: Denies visual changes. Reports bilateral redness, irritation discharge. ENT: Reports rhinorrhea, congestion, sinus pain, and sore throat. CARDIOVASCULAR: Denies chest pain, palpitations, or edema. RESPIRATORY: Reports cough. Denies dyspnea. GASTROINTESTINAL: Denies abdominal pain, nausea, vomiting, diarrhea SKIN: Denies rash or itching. MUSCULOSKELETAL: Reports myalgia. NEUROLOGIC: Reports headache. All systems reviewed & are unremarkable except as noted in HPI and below PMFSH Past Medical History Medical History No pertinent past medical history Surgical History Surgical History No pertinent past surgical history Family History Family History Mother No pertinent family history Social History Social History Smoking status: Never smoker Alcohol intake: never Substance use: never Living arrangements: alone Gender identity (if verbalized by the patient): Female Comments At time of signature, agree with nursing past medical, surgical, social and family history. There is no relevant family history pertinent to the presenting complaint Exam Narrative: GENERAL: Nontoxic-appearing, well-nourished, and in no acute distress. HEAD: Normocephalic EYES: PERRLA, conjunctivae clear ENT: Nares clear. Mucous membranes moist. TM pearly agarwal with dull light reflex bilaterally; no tragal tenderness. Oropharynx erythematous without lesions. Tonsils enlarged and with exudate, no drooling, no hoarseness, no trismus, uvula midline. NECK: Supple. No lymphadenopathy CHEST: Clear to auscultation, breath sounds equal. No wheezing, rhonchi, rales, or stridor. No respiratory distress, speaks in full sentences. HEART: Regular rate and rhythm. No murmur heard. SKIN: Warm, dry, no rash. NEURO: Alert and oriented x3. PSYCH: Normal mood and affect Course Course Emergency Course: Patient is aware of diagnosis, understands and agrees to treatment plan. Anticipatory guidance given. Patient agrees to follow-up as directed and is aware of reasons to seek care at the emergency department. Portions of this record may have been created with voice recognition software Level of Care: Express Care Visit Vital Signs Vital signs: Reviewed. MDM - URI/Sore Throat MDM Narrative Medical decision making narrative: Differential diagnosis considered: Tapia virus, strep pharyngitis, allergic rhinitis, upper respiratory tract infection, sinusitis, rhinosinusitis, nasopharyngitis. viral pharyngitis, otitis media, otitis externa, pneumonia, bronchitis, viral cough syndrome, viral syndrome, and influenza. Exam findings show no acute concerns or changes; patient is non-toxic appearing and is in no distress. Patient is appropriate for outpatient treatment and follow-up. Lab Data Attestation: I reviewed the patient's lab results. Critical Care Time Critical C
[2024-02-15 18:05] VITALS: BP 131/74; PULSE 95; RESP 16; TEMP 37.7; O2SAT 99
[2024-02-15 18:46] LABS: EDSTREPNEGPOS1 Negative (Negative)
[2024-02-15 18:46] LABS: EDSTREPNEGPOS1 Negative (Negative)
[2024-02-15 18:52] LABS: EDCOVIDSCREEN Negative (Negative)
[2024-02-15 18:53] LABS: EDINFLUASCREEN Negative (Negative); EDINFLUBSCREEN Negative (Negative)
== END 2024-02-15 19:05 | disposition home or self-care (01) ==
PROVIDERS: Emergency Provider Nurse Practitioner
DX: J32.9 Chronic sinusitis, unspecified (principal); Z20.822 Contact with and (suspected) exposure to COVID-19
CPT/HCPCS: 87081; 87426; 87804; 87880; 99213; G0463